=== PATIENT | female | born 1975 | race African-American/Black ===

== ENCOUNTER → 2020-12-30 09:34 | Outpatient (CLI) | payer SELFPAY ==
[2020-12-30 10:58] LABS: COVID19 -Nasal RAPID Negative (Negative)
== END ==
PROVIDERS: Visit Provider Student in an Organized Health Care Education/Training Program
DX: J39.2 Other diseases of pharynx (principal)
CPT/HCPCS: 87635

== ENCOUNTER 2022-05-04 21:19 | Emergency (ER) | payer OTHER, SELFPAY ==
[2022-05-04 21:29] VITALS: BP 190/113; PULSE 83; RESP 20; TEMP 35.8; O2SAT 100; BMI 30.9
--- NOTE | 2022-05-04 22:42 | DI.RAD.S_ITS ---
PROCEDURE: XR CHEST 1V INDICATIONS: chest pain TECHNIQUE: One view of the chest was acquired. COMPARISON: None. FINDINGS: Surgical changes and devices: None. Lungs and pleura: No acute consolidation. Within the left upper lung zone, there is an oval nodular opacity measuring approximately 0.9 cm. No pleural effusions or pneumothorax. Mediastinum: Mediastinal contours appear normal. Heart size is normal. Bones and chest wall: No suspicious bony lesions. Overlying soft tissues appear unremarkable. IMPRESSION: 1. No acute consolidation. 2. Nodular opacity in the left upper lung zone measuring up to 0.9 cm is nonspecific but is suggestive of a pulmonary nodule. Recommend a follow-up nonemergent chest CT for further evaluation. Dictated by: Yves Youssef M.D. on 05/04/2022 at 23:55 Approved by: Yves Youssef M.D. on 05/04/2022 at 23:58
[2022-05-04 22:52] VITALS: BP 184/106
--- NOTE | 2022-05-04 22:52 | PC.NURSE ---
IV removed per patient request
[2022-05-04 23:02] LABS: Add Manual Diff / Slide Review NO; Basophils Absolute Auto 100 /uL (0-100); Basophils Percent Auto 0.8 % (0-2); Eosinophils Absolute Auto 600 /uL (0-450); Eosinophils Percent Auto 7.2 % (2-4); Hematocrit 34.9 % (36-46); Hemoglobin 11.4 g/dL (12.0-16.0); Lymphocytes Absolute Auto 3000 /uL (1100-4500); Lymphocytes Percent Auto 33.3 % (25-40); Mean Corpuscular HGB Conc 32.7 % (30-36); Mean Corpuscular Hemoglobin 23.1 PG (26-34); Mean Corpuscular Volume 70.6 fL (80-100); Monocytes Absolute Auto 800 /uL (0-900); Monocytes Percent Auto 8.6 % (3-14); Neutrophils Absolute Auto 4500 /uL (1500-7000); Neutrophils Percent Auto 50.1 % (50-75); Platelet Count 288 X10^3/uL (150-400); Red Blood Cell Count 4.94 X10^6/uL (4.0-5.2); Red Cell Distribution Width 16.9 % (11.6-14.8); White Blood Cell Count 8.9 X10^3/uL (4.5-11.0)
[2022-05-04 23:05] LABS: Alanine Aminotransferase 21 IU/L (<35); Albumin 4.3 g/dL (3.5-5.0); Albumin Globulin Ratio 1.2 (1.0-2.8); Alkaline Phosphatase 76 U/L (38-126); Aspartate Aminotransferase 33 IU/L (14-36); Bilirubin Total 0.4 mg/dL (0.2-1.3); Blood Urea Nitrogen 14 mg/dL (7-17); Calcium 9.1 mg/dL (8.4-10.2); Carbon Dioxide 27 mmol/L (22-32); Chloride 96 mmol/L (98-107); Creatine Kinase 435 U/L (30-135); Estimated Glomerular Filt Rate > 60 mL/min (>60); Globulin 3.6 g/dL (1.7-4.1); Glucose 119 mg/dL (70-100); HEMOLYSIS < 15 (0-50); Lipase 153 U/L (23-300); Magnesium 1.7 mg/dL (1.6-2.3); Potassium 3.5 mmol/L (3.4-5.1); Sodium 133 mmol/L (137-145); Total Protein 7.9 g/dL (6.3-8.2)
[2022-05-04 23:17] LABS: Troponin I < 0.012 ng/mL (0.01-0.034)
[2022-05-04 23:20] LABS: CKMB % Relative Index 0.9 % (1.5-5.0); Creatine Kinase MB 3.73 ng/mL (<2.37)
[2022-05-04 23:25] LABS: COVID19 -Nasal RAPID Negative (Negative)
--- NOTE | 2022-05-05 07:50 | PC.NURSE ---
Per Dr Kendrick request, pt was called and given information regarding XR results and lab results and for follow up with her primary care and to return for any new or worsening symptoms.
== END 2022-05-04 23:45 | disposition left against medical advice (07) ==
PROVIDERS: Emergency Provider Emergency Medicine; PCP Nurse Practitioner Family
DX: R42 Dizziness and giddiness (principal); M54.6 Pain in thoracic spine; Z20.822 Contact with and (suspected) exposure to COVID-19
CPT/HCPCS: 36415; 71045; 80053; 82550; 82553; 83690; 83735; 84484; 85025; 87635; 93005; 93010; 99283; C9803

== ENCOUNTER → 2024-12-06 08:45 | Outpatient (CLI) | payer OTHER, SELFPAY ==
--- NOTE | 2024-12-06 08:46 | DI.MG.S_ITS ---
MM diagnostic mammo unilat RT, US breast RT limited: 12/06/2024 BI-RADS: 2 CLINICAL: 49-year old female for right diagnostic mammogram and right diagnostic breast ultrasound. Tyrer-Cuzick lifetime risk of 8.5%. No personal or first-degree family history of breast cancer. PRIOR EXAMS 10/22/2024, [id number], 09/29/2021. MAMMOGRAPHY TECHNIQUE: 2D and 3D (tomosynthesis) digital mammographic views obtained, with additional images as needed for full coverage. Current study was also evaluated with a Computer Aided Detection (CAD) system. ULTRASOUND TECHNIQUE Real-time burton scale and color doppler imaging of the area of clinical interest was performed with image documentation. TARGETED Right Breast Ultrasound: Real-time ultrasound exam was performed focused to area of clinical and/or imaging concern. DENSITY Right: C. The breasts are heterogeneously dense, which may obscure small masses. MAMMOGRAPHY FINDINGS Right (finding-1): Upper Outer Quadrant, Posterior depth: There is a focal asymmetry present. This likely corresponds to finding described on recent outside screening mammogram. There are no other suspicious masses, calcifications, or other findings in the breast. ULTRASOUND FINDINGS Right: Outer at 9:00, 8 cm from nipple, measuring 1.1 x 0.6 x 0.5 cm: There are clustered macrocysts. Right (finding-1): Upper Outer at 10:00, 8 cm from nipple, measuring 1.6 x 1.5 x 1 cm: Correlating with findings on mammogram there are clustered macrocysts. IMPRESSION: Right * No evidence of malignancy with benign findings. RECOMMENDATIONS Bilateral * Annual screening mammography. COMMENTS: Findings and recommendations were conveyed to the patient during today's evaluation. OVERALL ASSESSMENT CATEGORY BI-RADS-2: Benign. The [employer] recommends annual screening mammography beginning at age 40 for women with average risk of breast cancer. ELECTRONICALLY SIGNED: Oralia Hdez M.D. on 12/06/2024 at 10:28:16 AM PT Interpreting Station ID: [id number]
== END ==
LOC: MAMMO 08:45
PROVIDERS: PCP Nurse Practitioner Family; Referring Provider Nurse Practitioner Family; Visit Provider Nurse Practitioner Family
DX: N60.01 Solitary cyst of right breast (principal); R92.333 Mammographic heterogeneous density, bilateral breasts
CPT/HCPCS: 76642; 77065; G0279